=== PATIENT | female | born 1955 | race Caucasian/White ===

== ENCOUNTER 2023-03-23 07:12 | Day surgery (SDC) | payer BC ==
[~2023-03-23] VITALS: Ht 160 cm; Wt 74.4 kg
[~2023-03-23 07:12] MED LIST: ceFAZolin SODIUM 2 GM in D5W 50 ML IV ONE
[2023-03-23 07:34] VITALS: O2SAT 98
[2023-03-23] MEDS ORDERED: fentaNYL CITRATE/PF 100 MCG/2 ML AMP ONE ×2 (08:45→09:00)
[2023-03-23] MEDS ORDERED: MIDAZOLAM HCL 2 MG/2 ML VIAL (VERSED) ONE ×2 (08:46→09:00)
[2023-03-23] MEDS ORDERED: ONDANSETRON HCL 4 MG/2 ML VIAL ONE (09:00)
[2023-03-23] MEDS ORDERED: SUCCINYLCHOLINE CHLORIDE 20 MG/ML(QUELICIN) ONE (09:00)
[2023-03-23] MEDS ORDERED: LR 1,000 ML IV.SOLN IV ONE (09:00)
[2023-03-23] MEDS ORDERED: GLYCOPYRROLATE 0.2 MG/ML VIAL ONE (09:00)
[2023-03-23] MEDS ORDERED: NS IRRIG SOLN 1000 ML IR ONE (09:00)
[2023-03-23] MEDS ORDERED: BACITRACIN ZINC 15 GM TOPICAL OINTMENT TP ONE (09:00)
[2023-03-23] MEDS ORDERED: LIDOCAINE/EPI 2% 1:100000 20 ML VIAL INJ ONE (09:00)
[2023-03-23] MEDS ORDERED: ROCURONIUM BROMIDE 10 MG/ML (ZEMURON) ONE (09:00)
[2023-03-23] MEDS ORDERED: PROPOFOL 200MG/ 20ML VIAL (DIPRIVAN) IV ONE (09:00)
[2023-03-23] MEDS ORDERED: SEVOFLURANE 15 MIN GAS INH ONE (09:00)
[2023-03-23] MEDS ORDERED: DEXAMETHASONE SOD PHOSPHATE 4 MG/ML VIAL ONE (09:00)
[2023-03-23] MEDS ORDERED: ePHEDrine sulfate 50 MG/ML VIAL ONE (09:00)
[2023-03-23] MEDS ORDERED: METOCLOPRAMIDE HCL 10 MG/2 ML VIAL IVP PRN (12:45)
[2023-03-23] MEDS ORDERED: ONDANSETRON HCL 4 MG/2 ML VIAL IVP PRN (12:45)
[2023-03-23] MEDS ORDERED: HYDROmorphone 1 MG/ML INJ. CARTRIDGE IVP PRN ×2 (12:45)
[2023-03-23 14:18] VITALS: PULSE 69; RESP 16
[2023-03-23 14:24] VITALS: BP_SYST 126
== END 2023-03-23 15:38 | disposition home or self-care (01) ==
LOC: SDS 07:12 → SMU 07:14 → EDSTATUS 08:45 → SDS 15:38
PROVIDERS: ATTEND Otolaryngology
DX: D11.0 Benign neoplasm of parotid gland (principal); I10 Essential (primary) hypertension; E78.5 Hyperlipidemia, unspecified; J45.909 Unspecified asthma, uncomplicated; K21.9 Gastro-esophageal reflux disease without esophagitis; Z79.899 Other long term (current) drug therapy
CPT/HCPCS: 87081; 42415; 88307; J1100; J3490; J3465; J2405; J2704; J0330; J3010; J7060; J7120